=== PATIENT | female | born 1965 | race Caucasian/White ===

== ENCOUNTER 2020-06-02 04:17 | Inpatient (IN) | payer OTHER ==
[2020-06-01 10:26] VITALS: BMI 33.9
[2020-06-02] MEDS ORDERED: BUPIVACAINE LIPOSOME/PF (EXPAREL) 266 MG/20 ML VIAL ONE (13:30)
[2020-06-02] MEDS ORDERED: MIDAZOLAM HCL 2 MG/2 ML SINGLE DOSE VIAL ONE ×4 (13:31→14:23)
[2020-06-02] MEDS ORDERED: BUPIVACAINE HCL/PF 0.25% (2.5MG/ML) 10 ML VIAL ONE (13:35)
[2020-06-02] MEDS ORDERED: ROCURONIUM BROMIDE 50 MG/5 ML SYRINGE ONE ×2 (14:28→15:39)
[2020-06-02] MEDS ORDERED: SUCCINYLCHOLINE CHLORIDE 200 MG/10 ML SYRINGE ONE (14:28)
[2020-06-02] MEDS ORDERED: ceFAZolin SODIUM 1 GM VIAL IVPB ONE (14:38)
[2020-06-02] MEDS ORDERED: NEOSTIGMINE METHYLSULFATE 0.5 MG/ML - 10 ML MDV ONE (17:07)
[2020-06-02] MEDS ORDERED: ONDANSETRON 4 MG/2 ML VIAL IVPUSH PRN (17:24)
[2020-06-02] MEDS ORDERED: ACETAMINOPHEN INJECTION 100 ML IVPB ONE (17:27)
[2020-06-02] MEDS ORDERED: BISACODYL 10 MG SUPP.RECT PR PRN (17:29)
[2020-06-02] MEDS ORDERED: IBUPROFEN 800 MG/8 ML IJ IVPB ONE ×2 (18:18→18:20)
[2020-06-02] MEDS: IBUPROFEN 800 MG/8 ML IJ IVPB PRN (18:30)
[2020-06-02] MEDS: ELECTROLYTE-148 SOLN 1,000 ML IV SCH (19:41)
[2020-06-02] MEDS: oxyCODONE HCL 5 MG TABLET PO PRN (21:22)
[2020-06-02] MEDS: ACETAMINOPHEN 325 MG TABLET (FP) PO PRN (21:24)
[2020-06-03] MEDS: ceFAZolin 2 GRAM PREMIX BAG IVPB SCH ×3 (01:33→17:05)
[2020-06-03] MEDS: IBUPROFEN 800 MG/8 ML IJ IVPB PRN (02:24)
[2020-06-03] MEDS: ELECTROLYTE-148 SOLN 1,000 ML IV SCH (05:08)
[2020-06-03] MEDS: oxyCODONE HCL 5 MG TABLET PO PRN ×3 (06:26→16:27)
[2020-06-03] MEDS: ACETAMINOPHEN 325 MG TABLET (FP) PO PRN (06:26)
[2020-06-03 08:31] LABS: HEMATOCRIT 30.8 % (32.4-45.2); HEMOGLOBIN 10.2 GM/dL (10.7-15.3); MCH 29.6 pg (25.7-33.7); MCHC 33.1 g/dl (32.0-36.0); MEAN CELL VOLUME 89.6 fl (80-96); MEAN PLT VOLUME 7.6 fl (7.5-11.1); PLATELET COUNT 202 K/MM3 (134-434); RBC 3.44 M/mm3 (3.60-5.2); RDW 13.1 % (11.6-15.6); WHITE BLOOD COUNT 7.2 K/mm3 (4.0-10.0)
[2020-06-03 08:53] LABS: POTASSIUM 3.6 mmol/L (3.5-5.1)
[2020-06-03 08:54] LABS: CALCIUM 7.7 mg/dL (8.5-10.1)
[2020-06-03 08:58] LABS: CREATININE 0.7 mg/dL (0.55-1.3)
[2020-06-03] MEDS ORDERED: ENOXAPARIN NA (PORCINE) 40 MG/0.4 ML DISP.SYRIN SQ SCH (10:00)
[2020-06-03] MEDS: SIMETHICONE 80 MG TAB.CHEW (FP) PO PRN ×2 (10:17→16:31)
[2020-06-03] MEDS: IBUPROFEN 600 MG TABLET (FP) PO PRN ×2 (10:34→16:30)
[2020-06-03 14:02] VITALS: BP 91/59; PULSE 62; TEMP 98.6
== END 2020-06-03 17:50 | disposition home or self-care (01) | DRG 743 ==
LOC: J2C 04:17 → EDSTATUS 15:13 → J3W 20:00
PROVIDERS: ADMIT Obstetrics & Gynecology; ATTEND Obstetrics & Gynecology
PROC: 0UT70ZZ Resection of Bilateral Fallopian Tubes, Open Approach (ICD-10-PCS; 2020-06-02)
PROC: 0UT90ZL Resection of Uterus, Supracervical, Open Approach (ICD-10-PCS; principal; 2020-06-02 14:00)
DX: N85.2 Hypertrophy of uterus (principal); D25.1 Intramural leiomyoma of uterus; N80.0 Endometriosis of uterus; N92.1 Excessive and frequent menstruation with irregular cycle; N73.9 Female pelvic inflammatory disease, unspecified
CPT/HCPCS: 36415; 80048; 84703; 85027; 86850; 86900; 86901; 88302-TC; 88307-TC; 94010; 94760; J0131

== ENCOUNTER 2023-05-01 10:14 | Emergency (ER) | payer BC ==
[2023-05-01 10:24] VITALS: BP 135/54; PULSE 66; RESP 20; TEMP 98.1; BMI 33.9
[2023-05-01] MEDS ORDERED: ACETAMINOPHEN 500 MG TABLET (FP) PO ONE (12:54)
[2023-05-01] MEDS ORDERED: ACETAMINOPHEN 500 MG TABLET (FP) ONE (12:54)
== END 2023-05-01 13:05 | disposition home or self-care (01) ==
LOC: JER 10:14 → JERFT 10:14
DX: M79.661 Pain in right lower leg (principal)
CPT/HCPCS: 73562-TC-RT-FY; 93971-TC; 99284-25

== ENCOUNTER 2025-02-16 11:49 | Emergency (ER) | payer OTHER, BC ==
[2025-02-16 13:09] VITALS: BP 153/81; PULSE 85; RESP 20; TEMP 98; BMI 31.1
[2025-02-16] MEDS ORDERED: ACETAMINOPHEN INJECTION 100 ML ONE (13:19)
[2025-02-16] MEDS ORDERED: METOCLOPRAMIDE HCL INJECTION 10 MG/2 ML VIAL ONE (13:19)
[2025-02-16] MEDS: METOCLOPRAMIDE HCL INJECTION 10 MG/2 ML VIAL IVPB ONE (13:33)
[2025-02-16] MEDS: ACETAMINOPHEN 1000 MG/100 ML BAG IVPB ONE (13:38)
[2025-02-16] MEDS: SODIUM CHLORIDE 0.9% 1000 ML INFUS.BAG IV ONE (13:42)
== END 2025-02-16 14:30 | disposition home or self-care (01) ==
LOC: JER 11:49
PROC: 3E033GC Introduction of Other Therapeutic Substance into Peripheral Vein, Percutaneous Approach (ICD-10-PCS; principal; 2025-02-16)
PROC: 3E033GC Introduction of Other Therapeutic Substance into Peripheral Vein, Percutaneous Approach (ICD-10-PCS; 2025-02-16)
PROC: 3E033GC Introduction of Other Therapeutic Substance into Peripheral Vein, Percutaneous Approach (ICD-10-PCS; 2025-02-16)
DX: T67.5XXA Heat exhaustion, unspecified, initial encounter (principal); R42 Dizziness and giddiness; R51.9 Headache, unspecified; R11.0 Nausea; H53.149 Visual discomfort, unspecified
CPT/HCPCS: 99284-25